=== PATIENT | female | born 1985 | race Caucasian/White ===

== ENCOUNTER 2017-07-16 17:33 | Emergency (ER) | payer OTHER ==
[2017-07-16 17:51] VITALS: TEMP 98.1; O2SAT 100
[2017-07-16] MEDS ORDERED: HYDROCOD/APAP 5/325 PREPACK#6 BTL TAKEHOME ONE (19:25)
--- NOTE | 2017-07-16 19:25 | EDPHY ---
H & P Stated Complaint: fell playing soccer inj r elbow and ankle HPI/ROS: Chief complaint: Fall with injuries to right shoulder, elbow and ankle History of present illness: This is a 32-year-old female who presents to the emergency department for evaluation after falling while playing soccer landing onto her right side. He sustained injuries to her right shoulder, elbow and ankle. Her ankle hurts the worst. She is having difficulty moving and ambulating. She does report the elbow and shoulder however but they are only mildly uncomfortable and she can still move them. She denies injury to the rest of the body. There was no loss of consciousness. No neurologic symptoms such as paresthesias. No abnormal coolness in the affected extremities. No open wounds. - Personal History LMP (Females 10-55): Extended Cycle BCP/Inj Current Tetanus/Diphtheria Vaccine: Yes - Medical/Surgical History Hx Asthma: No Hx Chronic Respiratory Disease: No Hx Diabetes: No Hx Cardiac Disease: No Hx Renal Disease: No Hx Cirrhosis: No Hx Alcoholism: No Hx HIV/AIDS: No Hx Splenectomy or Spleen Trauma: No Other PMH: denies - Social History Smoking Status: Never smoked - Physical Exam Exam: General Appearance: Alert, nontoxic Eyes: PERRLA Respiratory: Lungs clear to auscultation bilaterally Cardiac: Regular rate and rhythm. Neurological: Alert and oriented x4. Cranial nerves 2-12 grossly intact. Strength and sensation intact and symmetrical. Sensation is intact distal to the injured extremities. Skin: No open wounds noted on examination. Musculoskeletal: Head is normocephalic, atraumatic. Spine is nontender to palpation along its entire length. Mild tenderness over the shoulder and elbow of the right extremity without specific point tenderness, crepitus or bony deformity. She is moving these well. There is edema to the lateral aspect of the right ankle is tender in this region. It hurts to move the ankle. She can wiggle the toes of the right foot. The extremities are otherwise unremarkable. Constitutional: Initial Vital Signs Temperature (C) 36.7 C 07/16/17 17:49 Heart Rate 93 07/16/17 17:49 Respiratory Rate 18 07/16/17 17:49 Blood Pressure 121/85 H 07/16/17 17:49 O2 Sat (%) 100 07/16/17 17:49 O2 Delivery Mode Room Air Allergies/Adverse Reactions: No Known Allergies Allergy (Unverified 07/16/17 17:48) Home Medications: Medication Instructions Recorded NK [No Known Home Meds] 07/16/17 Medical Decision Making - Diagnostics Imaging Results: Imaging Impressions Ankle X-Ray 07/16/17 18:07 Impression: 1. Oblique fracture distal right fibula with 3 mm of displacement. Elbow X-Ray 07/16/17 18:07 Impression: Normal right elbow series. Shoulder X-Ray 07/16/17 18:07 Impression: Normal Right shoulder series. Imaging: I viewed and interpreted images myself Procedures: Procedure: Splint placement. A walking boot splint was applied. After application of the splint I returned and re-examined the patient. The splint was adequately immobilizing the joint and distal to the splint the patient's circulation and sensation was intact. ED Course/Re-evaluation: Patient is seen under the supervision of my secondary supervising physician Dr. Amina Hidalgo. Patient presents to the emergency department after tripping and falling injuring her right shoulder, elbow and ankle. The right upper extremity is neurovascularly intact. She is moving it with minimal discomfort. X-rays are negative. She is given a sling to use as needed for comfort. Her right lower extremity does have edema over the lateral malleolus and is tender with discomfort moving the ankle. X-ray confirms a distal fibular fracture. She is placed in a walking boot. She is given crutches. We have discussed using the crutches versus using the sling based on symptoms that she is experiencing. By history and physical exam no evidence of trauma to other parts of the body. Home care is discussed. She is asked to follow up with orthopedics for continued evaluation and care. Return precautions are given. Patient voiced understanding and agreement with plan. Differential Diagnosis: Included but not limited to contusion, sprain or strain, bony fracture, joint dislocation - Data Points Medications Given: Discontinued Medications Hydrocodone Bitart/Acetaminophen (Sumner 5/325mg Prepack#6) 1 btl TAKEHOME EDNOW ONE Stop: 07/16/17 19:26 Last Admin: 07/16/17 19:40 Dose: 1 btl Departure - Departure Disposition: Home, Routine, Self-Care Clinical Impression: Arm sprain Ankle fracture Qualifiers: Encounter type: initial encounter Fracture type: closed Laterality: right Qualified Code(s): S82.891A - Other fracture of right lower leg, initial encounter for closed fracture Condition: Good Instructions: Hydrocodone/Acetaminophen (By mouth), Ankle Fracture (ED), Elbow Sprain (ED) Additional Instructions: Follow-up with orthopedics for continued evaluation and care In regards to pain control see the following: Use ibuprofen [600] mg [3] times a day for the next 2-3 days for pain In addition You have been prescribed [Sumner] for pain. [Sumner] contains Tylenol, do not take extra Tylenol/acetaminophen/Apap with it. It is sedating. If symptoms worsen or new symptoms develop return to the emergency room for recheck Referrals: KAMLA ROBERTS [Other] - As per Instructions Lashanda Pak MD [Medical Doctor] - As per Instructions
[2017-07-16 19:51] VITALS: BP 137/85; PULSE 80; RESP 14
== END 2017-07-16 19:50 | disposition home or self-care (01) ==
DX: S82.891A Other fracture of right lower leg, initial encounter for closed fracture (principal); S43.401A Unspecified sprain of right shoulder joint, initial encounter; S53.401A Unspecified sprain of right elbow, initial encounter; W18.39XA Other fall on same level, initial encounter; Y99.8 Other external cause status; Y93.66 Activity, soccer
CPT/HCPCS: A4565; L4386